=== PATIENT | female | born 1955 | race Caucasian/White ===

== ENCOUNTER 2017-10-22 05:04 | Inpatient (IN) | payer MEDICARE, MEDICAID ==
[~2017-10-22] VITALS: Ht 160 cm; Wt 69.9 kg
[~2017-10-22 05:04] MED LIST: AMLO1TAB36 PO; [UNRECOGNIZED DRUG - CODE] PO; vitamin B complex IM
--- NOTE | 2017-10-22 05:15 | NUR ---
DR LM SWIFT MD AT BEDSIDE FOR MSE.
[2017-10-22] MEDS ORDERED: AMIO200T4 PO (05:22)
[2017-10-22] MEDS ORDERED: AMLO5TAB4 PO (05:22)
[2017-10-22] MEDS ORDERED: CEFD300C3 PO (05:22)
[2017-10-22] MEDS ORDERED: LOSA1TAB39 PO (05:22)
[2017-10-22] MEDS ORDERED: BENZONATATE 100 MG CAPSULE PO ONE (05:45)
--- NOTE | 2017-10-22 05:48 | NUR ---
LAB AT PT BEDSIDE FOR BLOOD DRAW.
[2017-10-22] MEDS ORDERED: BENZONATATE 100 MG CAPSULE ONE (05:56)
[2017-10-22 06:09] LABS: BASOPHILS % (AUTO) 0.3 % (0.0-2.0); EOSINOPHILS % (AUTO) 0.3 % (0.0-7.0); HEMATOCRIT 34.9 % (31.2-41.9); HEMOGLOBIN 11.1 g/dL (10.9-14.3); LYMPHOCYTES # (AUTO) 2.4 K/uL (20.0-40.0); MEAN CORPUSCULAR HEMOGLOBIN 20.7 uug (24.7-32.8); MEAN CORPUSCULAR HGB CONC 32 g/dL (32.3-35.6); MEAN CORPUSCULAR VOLUME 64.9 fL (75.5-95.3); MONOCYTES # (AUTO) 0.6 K/uL (2.0-10.0); NEUTROPHILS % (AUTO) 56.4 % (38.5-71.5); PLATELET COUNT (AUTO) 151 K/uL (179-408); RED BLOOD CELL COUNT(AUTO) 5.37 MIL/uL (3.63-4.92); WHITE BLOOD COUNT (AUTO) 7.2 K/uL (3.8-11.8)
[2017-10-22] MEDS ORDERED: LEVOFLOXACIN 750 MG TABLET PO ONE (06:15)
[2017-10-22] MEDS ORDERED: CEFTRIAXONE 1 G VIAL IM ONE (06:15)
[2017-10-22 06:25] LABS: CREATININE 0.6 mg/dL (0.6-1.3)
[2017-10-22 06:27] LABS: POTASSIUM 2.8 mmol/L (3.5-5.1)
[2017-10-22 06:30] LABS: BILIRUBIN,DIRECT 0.3 mg/dL (0.0-0.2); BILIRUBIN,TOTAL 0.7 mg/dL (0.2-1.0); TOTAL PROTEIN, SERUM 8.2 g/dL (6.4-8.2)
[2017-10-22] MEDS ORDERED: POTASSIUM CHLORIDE 50 ML IV SCH (06:30)
[2017-10-22] MEDS ORDERED: LIDOCAINE HCL 2% 20 ML VIAL ONE (06:30)
[2017-10-22] MEDS ORDERED: IV NORMAL SALINE 1000 ML BAG IV ONE (06:30)
[2017-10-22] MEDS ORDERED: LEVOFLOXACIN 750 MG TABLET ONE (06:30)
[2017-10-22] MEDS ORDERED: LEVOFLOXACIN 750 MG/D5W 150 ML PIGGYBACK IV ONE (06:30)
[2017-10-22] MEDS ORDERED: CEFTRIAXONE 1 G VIAL ONE (06:30)
[2017-10-22] MEDS ORDERED: CEFTRIAXONE 1 G in IV DEXTROSE 5% 50 ML IV ONE (06:30)
[2017-10-22] MEDS ORDERED: POTASSIUM BICARBONATE/CIT AC 25 MEQ TABLET.EFF PO ONE (06:30)
[2017-10-22] MEDS ORDERED: LEVOFLOXACIN 750MG/D5W 150 ML IV ONE (06:35)
--- NOTE | 2017-10-22 06:50 | NUR ---
BLOOD CULTURES COLLECTED AND SENT TO LAB.
[2017-10-22] MEDS ORDERED: POTASSIUM BICARBONATE/CIT AC 25 MEQ TABLET.EFF ONE (07:12)
[2017-10-22] MEDS ORDERED: POTASSIUM CHLORIDE 50 ML ONE (07:13)
--- NOTE | 2017-10-22 07:18 | NUR ---
REPORT GIVEN TO MARTÍN TRUJILLO RN.
--- NOTE | 2017-10-22 07:22 | NUR ---
PT AMBULATED TO BATHROOM W/ STEADY GAIT. NO DISTRESS NOTED
[2017-10-22 07:58] LABS: LYMPHOCYTES % (MANUAL) 35 % (20-40); MONOCYTES % (MANUAL) 8 % (2-10); NEUTROPHILS % (MANUAL) 57 % (42-75)
[2017-10-22] MEDS ORDERED: ONDANSETRON ODT 4 MG TAB.RAPDIS SL ONE (08:00)
--- NOTE | 2017-10-22 08:38 | NUR ---
BELONGINGS LIST MANSI LINO REPORT TO JALYN HERNANDEZ, MARISOL IVPB STOPPED AND ENDORSED TO JALYN HERNANDEZ TO COMPLETE. PT TO RM 226 VIA [facility].
[2017-10-22] MEDS ORDERED: ONDANSETRON ODT 4 MG TAB.RAPDIS ONE (08:41)
--- NOTE | 2017-10-22 08:55 | NUR ---
PATIENT ADMITTED TO ROOM 226, REPORT FROM CARLYN HERNANDEZ RECEIVED PRIOR TO PATIENT'S ARRIVAL. NO ACUTE DISTRESS NOTED. MD NOTIFIED. AWAITING ADMISSION ORDERS. WILL CONTINUE TO MONITOR CLOSELY.
[2017-10-22 09:00] VITALS: BP 122/80
[2017-10-22] MEDS ORDERED: ACETAMINOPHEN 325 MG TABLET PO PRN (10:30)
[2017-10-22] MEDS ORDERED: METOPROLOL TARTRATE 25 MG TABLET PO SCH (10:30)
[2017-10-22] MEDS ORDERED: ALBUTEROL SULFATE 2.5 MG/3 ML NEBU NEB PRN (10:30)
[2017-10-22] MEDS ORDERED: ONDANSETRON 4 MG/2 ML VIAL IV PRN (10:30)
[2017-10-22] MEDS ORDERED: IPRATROPIUM BROMIDE 0.5 MG/2.5 ML NEBU NEB PRN (10:30)
[2017-10-22] MEDS ORDERED: LEVALBUTEROL HCL NEB 0.63 MG/3 ML NEBU NEB PRN (11:30)
[2017-10-22 12:07] VITALS: BP 133/75
[2017-10-22] MEDS: BENZONATATE 100 MG CAPSULE PO SCH ×2 (13:17→21:11)
[2017-10-22] MEDS ORDERED: ALBUTEROL SULFATE 2.5 MG/3 ML NEBU NEB SCH (13:30)
[2017-10-22] MEDS: CEFEPIME HCL 1 G in IV DEXTROSE 5% 50 ML IV SCH ×2 (13:36→21:21)
[2017-10-22] MEDS: HYDROCODONE/APAP 5-325MG TABLET PO PRN ×2 (15:04→21:27)
[2017-10-22 15:22] VITALS: BP 127/66
[2017-10-22] MEDS ORDERED: POTASSIUM CHLORIDE 20 MEQ TAB.PRT.SR PO ONE (16:15)
[2017-10-22] MEDS: LEVALBUTEROL HCL NEB 0.63 MG/3 ML NEBU NEB SCH (19:08)
[2017-10-22] MEDS: IPRATROPIUM BROMIDE 0.5 MG/2.5 ML NEBU NEB SCH (19:08)
[2017-10-22 19:28] VITALS: BP 139/70
[2017-10-22 21:34] LABS: *BILIRUBIN,URIN NEGATIVE (NEGATIVE); *BLOOD, URINE NEGATIVE (NEGATIVE); *CLARITY,URINE CLEAR (CLEAR); *COLOR,URINE YELLOW (YELLOW); *KETONES,URINE NEGATIVE (NEGATIVE); *PROTEIN,URINE NEGATIVE (NEGATIVE); *UROBILINOGEN,URINE 0.2 E.U./dl (NORMAL); LEUKOCYTE ESTERASE ,URINE NEGATIVE (NEGATIVE); NITRITE, URINE NEGATIVE (NEGATIVE); UGLUCOSE NEGATIVE (NEGATIVE)
[2017-10-22 21:39] LABS: SQUAMOUS EPITHELIAL CELL,UR FEW /HPF (NONE SEEN); WBC,URINE 0-3 /HPF (0-3)
[2017-10-22 23:31] VITALS: BP 148/79
[2017-10-23] MEDS: LEVALBUTEROL HCL NEB 0.63 MG/3 ML NEBU NEB SCH ×2 (00:40→07:32)
[2017-10-23] MEDS: IPRATROPIUM BROMIDE 0.5 MG/2.5 ML NEBU NEB SCH ×3 (00:40→14:03)
[2017-10-23 03:43] VITALS: BP 123/71
[2017-10-23] MEDS: CEFEPIME HCL 1 G in IV DEXTROSE 5% 50 ML IV SCH (05:24)
[2017-10-23] MEDS: BENZONATATE 100 MG CAPSULE PO SCH ×2 (05:27→14:20)
[2017-10-23 05:50] LABS: BILIRUBIN,TOTAL 0.5 mg/dL (0.2-1.0); CREATININE 0.7 mg/dL (0.6-1.3); MAGNESIUM 1.7 mg/dL (1.8-2.4); PHOSPHOROUS 3.4 mg/dL (2.5-4.9); POTASSIUM 3.1 mmol/L (3.5-5.1); TOTAL PROTEIN, SERUM 7.5 g/dL (6.4-8.2)
--- NOTE | 2017-10-23 06:00 | NUR ---
No significant change, assisted with needs. Breathing treatment provided by RT Q6HR. Sinus Rhythm on the monitor. Right AV IV line infiltrated, inserted new line on lher right hand w/ [id number]. Tolerating routine IV antibiotic, afebrile. No acute resp distress, vital signs WNL.
[2017-10-23 06:04] LABS: BASOPHILS % (AUTO) 0.6 % (0.0-2.0); EOSINOPHILS % (AUTO) 0.6 % (0.0-7.0); HEMATOCRIT 31.8 % (31.2-41.9); HEMOGLOBIN 10.4 g/dL (10.9-14.3); MEAN CORPUSCULAR HEMOGLOBIN 21.2 uug (24.7-32.8); MEAN CORPUSCULAR HGB CONC 33 g/dL (32.3-35.6); MEAN CORPUSCULAR VOLUME 64.8 fL (75.5-95.3); MONOCYTES # (AUTO) 0.4 K/uL (2.0-10.0); MONOCYTES % (AUTO) 7.7 % (0.0-11.0); NEUTROPHILS # (AUTO) 2.3 K/uL (1.8-8.9); NEUTROPHILS % (AUTO) 40.1 % (38.5-71.5); PLATELET COUNT (AUTO) 151 K/uL (179-408); RED BLOOD CELL COUNT(AUTO) 4.91 MIL/uL (3.63-4.92); WHITE BLOOD COUNT (AUTO) 5.8 K/uL (3.8-11.8)
[2017-10-23] MEDS ORDERED: PANTOPRAZOLE SODIUM 40 MG TABLET.DR PO SCH (07:00)
[2017-10-23] MEDS ORDERED: LEVOFLOXACIN 500 MG/D5W 500 MG in PREMIXED 1 EACH IV SCH (07:30)
[2017-10-23 08:00] VITALS: BP 130/61
--- NOTE | 2017-10-23 08:07 | NUR ---
RECEIVED A 61 Y/O FEMALE AWAKE, ALERT OX4, BREATHING VIA ROOM . A CASE OF PNEUMONIA. PT CONNECTED TO TELE BOX SHOWING S.TACHY AROUND 102BPM. HAS A RT HAND IV LINE G22. AMBULATES INDEPENDENTLY, URINATES FREELY.
[2017-10-23] MEDS ORDERED: AMIODARONE HCL 200 MG TABLET PO SCH (09:00)
[2017-10-23] MEDS ORDERED: AMLODIPINE 5 MG TABLET PO SCH (09:00)
[2017-10-23 09:58] LABS: BAND % (MANUAL) 4 % (0-10); BASOPHILS % (MANUAL) 1 % (0-2); LYMPHOCYTES % (MANUAL) 46 % (20-40); MONOCYTES % (MANUAL) 8 % (2-10); NEUTROPHILS % (MANUAL) 41 % (42-75)
[2017-10-23] MEDS ORDERED: POTASSIUM CHLORIDE 20 MEQ TAB.PRT.SR PO ONE (10:30)
[2017-10-23] MEDS ORDERED: MAGNESIUM SULFATE/D5W 100 ML IV SCH (10:30)
[2017-10-23] MEDS ORDERED: ALBUTEROL SULFATE 1.25 MG/3 ML NEBU NEB PRN (10:30)
[2017-10-23 11:22] VITALS: BP 115/74
--- NOTE | 2017-10-23 13:00 | NUR ---
SEEN BY ROSAURA FLORES , ORDERED FOR PTS DISCHARGE, ORDER CARRIED OUT
[2017-10-23] MEDS ORDERED: ALBUTEROL SULFATE 1.25 MG/3 ML NEBU NEB SCH (13:30)
[2017-10-23] MEDS ORDERED: CEFU250T85 PO (13:52)
[2017-10-23] MEDS ORDERED: ALBU8.5H8 INH (13:52)
[2017-10-23] MEDS ORDERED: BENZ-38 PO (13:52)
[2017-10-23] MEDS ORDERED: LACT1CAP57 PO (13:52)
--- NOTE | 2017-10-23 14:20 | NUR ---
PATIENT DISCHARGE TO HOME, RECEIVED HER DISCHARGE PRESCRIPTION AND INSTRUCTIONS. ALL BELONGINGS TAKEN AND L;EFT WITH .
[2017-10-23 14:30] VITALS: BP 121/68
[2017-10-23] MEDS ORDERED: CEFUROXIME AXETIL 250 MG TABLET PO SCH (21:00)
[2017-10-23] MEDS ORDERED: LACTOBACILLUS RHAMNOSUS GG 1 EACH CAPSULE PO SCH (21:00)
== END 2017-10-23 14:25 | disposition home or self-care (01) | DRG 178 ==
LOC: ER 05:08 → TELE 08:41
PROVIDERS: ADMIT Internal Medicine; ATTEND Internal Medicine
DX: J15.6 Pneumonia due to other Gram-negative bacteria (principal); E87.1 Hypo-osmolality and hyponatremia; J15.9 Unspecified bacterial pneumonia; E83.42 Hypomagnesemia; E87.6 Hypokalemia; D69.6 Thrombocytopenia, unspecified; D50.9 Iron deficiency anemia, unspecified; Z87.01 Personal history of pneumonia (recurrent); I10 Essential (primary) hypertension; E88.09 Other disorders of plasma-protein metabolism, not elsewhere classified; E80.6 Other disorders of bilirubin metabolism; E78.5 Hyperlipidemia, unspecified; Z98.51 Tubal ligation status; J20.9 Acute bronchitis, unspecified; R73.9 Hyperglycemia, unspecified; I49.9 Cardiac arrhythmia, unspecified
CPT/HCPCS: 36415; 70030-TC; 71045; 83735; 84100; 84132; 84443; 85025; 87040; 93005; 93307; 94640; 94664; A4663; J0692; J0696; J1956; J3475; J3480; J3490; J3590; J7030; J7050; J7060; J7614; Q0162